=== PATIENT | female | born 1950 ===

== ENCOUNTER 2023-05-22 14:29 | Outpatient (CLI) | payer MEDICARE ==
[~2023-05-22 14:29] MED LIST: Magnevist 469MG/ML 20 ML VIAL ONE
== END 2023-05-22 14:30 | disposition home or self-care (01) ==
LOC: CSHMRI 14:29
PROVIDERS: ATTEND Student in an Organized Health Care Education/Training Program
DX: H90.A32 Mixed conductive and sensorineural hearing loss, unilateral, left ear with restricted hearing on the contralateral side (principal); R42 Dizziness and giddiness; I67.9 Cerebrovascular disease, unspecified
CPT/HCPCS: 70553; 82565